=== PATIENT | female | born 2000 | race African-American/Black ===

== ENCOUNTER 2023-04-04 04:08 | Day surgery (SDC) | payer OTHER ==
[2023-04-02 15:28] VITALS: BMI 19.9
[~2023-04-04 04:08] MED LIST: BUPIVACAINE HCL/PF 0.5% (5MG/ML) 10 ML VIAL IJ ONE; LIDOCAINE 1%/EPI 1:100000 (20 ML MULTI DOSE VIAL) IJ ONE
[2023-04-04] MEDS ORDERED: BUPIVACAINE HCL/PF 0.5% (5MG/ML) 10 ML VIAL ONE (10:27)
[2023-04-04] MEDS ORDERED: MIDAZOLAM HCL 2 MG/2 ML SINGLE DOSE VIAL ONE (13:27)
[2023-04-04] MEDS ORDERED: PROPOFOL 20 ML ONE (13:33)
[2023-04-04] MEDS ORDERED: ceFAZolin 2 GRAM PREMIX BAG IVPB ONE (13:40)
[2023-04-04] MEDS ORDERED: ceFAZolin SODIUM 1 GM VIAL ONE ×2 (14:01)
[2023-04-04] MEDS ORDERED: MICROFIBRILLAR COLLAGEN 1 GM EACH TP ONE (14:19)
[2023-04-04] MEDS ORDERED: LIDOCAINE 1%/EPI 1:100000 (20 ML MULTI DOSE VIAL) IJ ONE (14:24)
[2023-04-04] MEDS ORDERED: BUPIVACAINE HCL/PF 0.5% (5MG/ML) 10 ML VIAL IJ ONE (14:24)
[2023-04-04] MEDS ORDERED: LACTATED RINGERS SOLUTION 1,000 ML IV SCH ×2 (14:45→15:00)
[2023-04-04] MEDS ORDERED: ONDANSETRON 4 MG/2 ML VIAL IVPUSH PRN (14:55)
[2023-04-04] MEDS ORDERED: oxyCODONE HCL 5 MG TABLET PO PRN (14:55)
[2023-04-04] MEDS ORDERED: ACETAMINOPHEN 650 MG/20.3 ML ORAL SOLUTION (CUPS) PO ONE ×2 (16:28→16:40)
[2023-04-04] MEDS ORDERED: ACETAMINOPHEN 650 MG/20.3 ML ORAL SOLUTION (CUPS) ONE (16:30)
[2023-04-04 16:38] VITALS: RESP 16
[2023-04-04 17:51] VITALS: BP 111/75; PULSE 85; TEMP 97.7
== END 2023-04-04 17:55 | disposition home or self-care (01) ==
LOC: JASU-SURG 04:08
PROVIDERS: ATTEND Surgery
PROC: 07B20ZX Excision of Left Neck Lymphatic, Open Approach, Diagnostic (ICD-10-PCS; principal; 2023-04-04 12:00)
DX: C81.01 Nodular lymphocyte predominant Hodgkin lymphoma, lymph nodes of head, face, and neck (principal)
CPT/HCPCS: 81025; 88307-TC; 94760